=== PATIENT | female | born 1980 | race Caucasian/White ===

== ENCOUNTER 2019-11-09 23:12 | Emergency (ER) | payer SELFPAY ==
[~2019-11-09] VITALS: Ht 170.2 cm; Wt 82.6 kg
--- NOTE | 2019-11-09 23:12 | NUR ---
PT BIB [facility], PREBOOK. TAKEN TO CHAIR C
[2019-11-09 23:14] VITALS: BP 153/88
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
--- NOTE | 2019-11-10 00:02 | NUR ---
Dr. Cole examining patient.
[2019-11-10 00:37] VITALS: BP 141/78
--- NOTE | 2019-11-10 00:37 | NUR ---
PATIENT BIB [facility] [facility]. PATIENT EXAMINED BY DR. BOWSER PATIENT MEDICALLY CLEARED AND RELEASED IN CUSTODY IN STABLE CONDITION. ORIGINAL PRE-BOOK FORM GIVEN TO OFFICER MYNOR GAINES # [id number]
== END 2019-11-10 00:37 ==
LOC: MED 23:12
DX: Z02.9 Encounter for administrative examinations, unspecified (principal)
CPT/HCPCS: 99283